=== PATIENT | female | born 2000 | race Hispanic/Latino ===

== ENCOUNTER 2022-09-06 16:51 | Emergency (ER) | payer OTHER ==
--- NOTE | 2022-09-06 17:26 | RAD REPORT ---
EXAM DESCRIPTION: Gonsalo Carlton (2 Views)09/06/2022 5:19 pm CLINICAL HISTORY: Cough COMPARISON: None FINDINGS: The lungs appear clear of acute infiltrate. The heart is normal size IMPRESSION: No acute abnormalities displayed
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
[2022-09-06 20:50] VITALS: TEMP 98; O2SAT 100
[2022-09-06 20:51] VITALS: BP 114/77
== END 2022-09-06 17:39 | disposition home or self-care (01) ==
LOC: ER 16:51
DX: S20.319A Abrasion of unspecified front wall of thorax, initial encounter (principal); V47.5XXA Car driver injured in collision with fixed or stationary object in traffic accident, initial encounter
CPT/HCPCS: 71046; 99283

== ENCOUNTER 2023-09-23 13:30 | Emergency (ER) | payer OTHER, SELFPAY ==
[2023-09-23 14:46] LABS: SARS-CoV-2 Antigen CONTROL BLUE LINE VIS/BG OK; SARS-CoV-2 Antigen Rapid Res Negative (Negative)
--- NOTE | 2023-09-23 14:48 | ER ---
Nurse's Notes [facility] Name: Vianca Thompson Age: 23 yrs Sex: Female : 2000 Arrival Date: 09/23/2023 Time: 13:30 Bed 12 Private MD: Diagnosis: Vomiting Presentation: 09/22 13:52 Chief complaint: Patient states: Pt states she vomited x 1 today at work at approx 0630 tl4 this morning. Pt denies any other sxs including abdominal pain, nausea, diarrhea. Pt states she had ETOH last night and vomited due to over consumption at midnight. Pt states she requires a work note and covid test to return. Coronavirus screen: At this time, the client does not indicate any symptoms associated with coronavirus-19. Ebola Screen: No symptoms or risks identified at this time. Initial Sepsis Screen: Does the patient meet any 2 criteria? No. Patient's initial sepsis screen is negative. Does the patient have a suspected source of infection? No. Patient's initial sepsis screen is negative. Risk Assessment: Do you want to hurt yourself or someone else? Patient reports no desire to harm self or others. Onset of symptoms was September 23, 2023 at 06:30. 13:52 Method Of Arrival: Ambulatory tl4 13:52 Acuity: TOMASZ 3 tl4 Triage Assessment: 13:57 General: Appears in no apparent distress. Behavior is calm, cooperative. Pain: Denies tl4 pain. EENT: No signs and/or symptoms were reported regarding the EENT system. Neuro: Level of Consciousness is awake, alert, obeys commands, Oriented to person, place, time, situation, Moves all extremities. Full function Gait is steady, Speech is normal, Facial symmetry appears normal. Cardiovascular: Capillary refill < 3 seconds Patient's skin is warm and dry. Respiratory: Airway is patent Respiratory effort is even, unlabored, Respiratory pattern is regular, symmetrical. GI: Reports vomiting. : No signs and/or symptoms were reported regarding the genitourinary system. Derm: No signs and/or symptoms reported regarding the dermatologic system. Musculoskeletal: No signs and/or symptoms reported regarding the musculoskeletal system. Historical: - Allergies: 13:56 No Known Allergies; tl4 - Home Meds: 13:56 None [Active]; tl4 - PMHx: 13:56 None; tl4 - PSHx: 13:56 None; tl4 - Immunization history:: Adult Immunizations unknown. - Infectious Disease History:: Denies. - Social history:: Smoking status: Patient denies any tobacco usage or history of. Patient uses alcohol, only on a social basis. street drugs, marijuana. Screenin:54 [facility] ED Fall Risk Assessment (Adult) History of falling in the last 3 months, db including since admission No falls in past 3 months (0 pts) Confusion or Disorientation No (0 pts) Intoxicated or Sedated No (0 pts) Impaired Gait No (0 pts) Mobility Assist Device Used No (0 pt) Altered Elimination No (0 pt) Score/Fall Risk Level 0 - 2 = Low Risk Oriented to surroundings, Maintained a safe environment. Abuse screen: Denies threats or abuse. Denies injuries from another. Nutritional screening: No deficits noted. Tuberculosis screening: No symptoms or risk factors identified. Assessment: 14:54 Reassessment: Patient appears in no apparent distress at this time. Patient and/or db family updated on plan of care and expected duration. Pain level reassessed. Patient is alert, oriented x 3, equal unlabored respirations, skin warm/dry/pink. General: Appears in no apparent distress. comfortable, Behavior is calm, cooperative. Pain: Denies pain. Neuro: Level of Consciousness is awake, alert, obeys commands, Oriented to person, place, time, situation. Respiratory: Airway is patent Respiratory effort is even, unlabored, Respiratory pattern is regular, symmetrical. GI: Abdomen is flat. Vital Signs: 13:52 BP 128 / 81; Pulse 70; Resp 18; Temp 97.2(O); Pulse Ox 99% on R/A; Weight 113.4 kg; tl4 Height 5 ft. 6 in. ; Pain 0/10; 14:54 BP 128 / 82; Pulse 72; Resp 16; Temp 97.8; Pulse Ox 99% ; db 13:52 Body Mass Index 40.35 (113.40 kg, 167.64 cm) tl4 13:52 Pain Scale: Adult tl4 ED Course: 13:32 Patient arrived in ED. mr 13:39 Tricia Fulton PA-C is [facility]. sb4 13:39 Jeane Kirby MD is Attending Physician. sb4 13:56 Triage completed. tl4 13:58 Arm band placed on left wrist. tl4 14:13 Katlyn Weiss, RN is Primary Nurse. db 14:58 Patient has correct armband on for positive identification. Bed in low position. Call db light in reach. Side rails up X 1. Provided Education on:. 14:58 No provider procedures requiring assistance completed. Patient did not have IV access db during this emergency room visit. Administered Medications: No medications were administered Medication: 14:54 VIS not applicable for this client. db Outcome: 14:47 Discharge ordered by MD. sb4 14:58 Discharged to home ambulatory, db 14:58 Condition: stable 14:58 Discharge instructions given to patient, Instructed on discharge instructions, follow up and referral plans. 14:59 Patient left the ED. db Signatures: Princess Novak, Reg Reg mr Katlyn Weiss, RN RN db Tricia Fulton PA-C PAKiC sb4 Liborio Henderson RN RN tl4
--- NOTE | 2023-09-23 14:48 | EDPHYS ---
Physician Documentation [facility] Name: Vianca Thompson Age: 23 yrs Sex: Female : 2000 Arrival Date: 09/23/2023 Time: 13:30 Bed 12 Private MD: ED Physician Jeane Kirby HPI: 09/22 14:01 This 23 yrs old Female presents to ER via Ambulatory with complaints of sb4 Vomiting, Work note. 14:01 patient states that she binge drank alcohol last night, vomited before she went to bed, sb4 went to work this morning and vomited at work. her work sent her home and told her she needed a covid test and a work note. she states she is feeling fine, no longer nauseated. denies abdominal pain, covid symptoms, fever, sick contacts, diarrhea. has been drinking water today without any vomiting. Historical: - Allergies: 13:56 No Known Allergies; tl4 - Home Meds: 13:56 None [Active]; tl4 - PMHx: 13:56 None; tl4 - PSHx: 13:56 None; tl4 - Immunization history:: Adult Immunizations unknown. - Infectious Disease History:: Denies. - Social history:: Smoking status: Patient denies any tobacco usage or history of. Patient uses alcohol, only on a social basis. street drugs, marijuana. ROS: 14:03 Constitutional: Negative for fever, chills, and weight loss, sb4 14:03 Abdomen/GI: Positive for vomiting, 14:03 All other systems are negative, Exam: 14:03 Constitutional: This is a well developed, well nourished patient who is awake, alert, sb4 and in no acute distress. Head/Face: Normocephalic, atraumatic. Eyes: Extra-ocular motions intact. Periorbital areas with no swelling, redness, or edema. ENT: Mucous membranes moist. Cardiovascular: Regular rate and rhythm with a normal S1 and S2. Respiratory: Lungs have equal breath sounds bilaterally, clear to auscultation and percussion. No rales, rhonchi or wheezes noted. No increased work of breathing, no retractions or nasal flaring. Abdomen/GI: Soft, non-tender, no distension. Skin: Warm, dry with normal turgor. Normal color with no rashes, no lesions, and no evidence of cellulitis. MS/ Extremity: Pulses equal, no cyanosis. Neurovascular intact. Full, normal range of motion. Neuro: Awake and alert, GCS 15, oriented to person, place, time, and situation. Motor strength 5/5 in all extremities. Sensory grossly intact. Vital Signs: 13:52 BP 128 / 81; Pulse 70; Resp 18; Temp 97.2(O); Pulse Ox 99% on R/A; Weight 113.4 kg; tl4 Height 5 ft. 6 in. ; Pain 0/10; 14:54 BP 128 / 82; Pulse 72; Resp 16; Temp 97.8; Pulse Ox 99% ; db 13:52 Body Mass Index 40.35 (113.40 kg, 167.64 cm) tl4 13:52 Pain Scale: Adult tl4 MDM: 13:39 Patient medically screened. sb4 14:46 Data reviewed: vital signs, nurses notes, lab test result(s), and as a result, I will sb4 discharge patient. Counseling: I had a detailed discussion with the patient and/or guardian regarding the historical points, exam findings, and any diagnostic results supporting the discharge/admit diagnosis, lab results, to return to the emergency department if symptoms worsen or persist or if there are any questions or concerns that arise at home. 09/22 13:57 Order name: NATALIYA MORIN; Complete Time: 14:46 sb4 Administered Medications: No medications were administered Disposition Summary: 09/23/23 14:47 Discharge Ordered Notes: Location: Home sb4 Problem: new sb4 Symptoms: have improved sb4 Condition: Stable sb4 Diagnosis - Vomiting sb4 Followup: sb4 - With: Private Physician - When: As needed - Reason: Recheck today's complaints, Re-evaluation by your physician Discharge Instructions: - Discharge Summary Sheet sb4 - Nausea and Vomiting, Adult sb4 Forms: - Work release form sb4 - Patient Portal Instructions sb4 - Leadership Thank You Letter sb4 Signatures: Dispatcher [employer] Tricia Damon PA-C PA-C sb4 LogdaLiborio marcus RN RN tl4 Corrections: (The following items were deleted from the chart) 14:03 14:01 patient states that she binge drank alcohol last night, vomited before she went sb4 to bed, went to work this morning and vomited at work. her work sent her home and told her she needed a covid test and a work note. sb4 14:04 14:01 patient states that she binge drank alcohol last night, vomited before she went sb4 to bed, went to work this morning and vomited at work. her work sent her home and told her she needed a covid test and a work note. she states she is feeling fine, no longer nauseated. denies abdominal pain, covid symptoms, fever, sick contacts, diarrhea. sb4
[2023-09-23 17:43] VITALS: O2SAT 99
[2023-09-23 17:44] VITALS: BP 128/82; TEMP 97.8
== END 2023-09-23 14:59 | disposition home or self-care (01) ==
LOC: ER 13:30
DX: R11.10 Vomiting, unspecified (principal)
CPT/HCPCS: 36415; 87811; 99283